=== PATIENT | male | born 1960 | race Caucasian/White ===

== ENCOUNTER 2017-01-08 06:09 | Day surgery (SDC) | payer OTHER ==
[2016-11-22 10:56] VITALS: BMI 26.7
[2017-01-07 11:47] VITALS: BMI 26.7
[~2017-01-08] VITALS: Ht 160 cm; Wt 70.6 kg
[2017-01-08] VITALS (8 sets, daily range): BP systolic 113–129; BP diastolic 68–95; PULSE 52–70; RESP 17–25; Ht 160 cm; Wt 70.6 kg
[~2017-01-08 06:09] MED LIST: CEFAZOLIN 2 GM/50 ML (PMX) 50 ML IVPB ONE
--- NOTE | 2017-01-08 07:00 | RADRPT ---
PROCEDURE: XR Chest. CLINICAL INDICATION: Preop TECHNIQUE: AP Portable chest. COMPARISON: No pertinent prior examinations were submitted for comparison. FINDINGS: The cardiomediastinal silhouette is normal. The aorta is normal. There is mild basilar scarring or atelectasis. No focal consolidation, pleural effusion or pneumothorax is seen. The osseous structu res are intact. IMPRESSION: No radiographic evidence of acute cardiopulmonary disease. RPTAT: HCNS Physician Delvin Date Time Electronically viewed and signed by Physician Delvin on 01/08/2017 07:00 CS/
[2017-01-08] MEDS ORDERED: BUPIVACAINE 0.5% (SDV) 30 ML INJ ONE (07:02)
[2017-01-08] MEDS ORDERED: LIDOCAINE 2% (MDV) 20 ML INJ ONE (07:02)
[2017-01-08] MEDS ORDERED: POLYMYXIN/BACITRACIN 1L IRRIG ONE (07:02)
--- NOTE | 2017-01-08 07:33 | HPN ---
Date/Time of Note Date/Time of Note DATE: 01/08/17 TIME: 07:33 Interval H&P Admission Note Pt. seen H&P reviewed: No system changes ALTAGRACIA NICE DPM Jan 08, 2017 07:33
[2017-01-08] MEDS ORDERED: LIDOCAINE 1% (MDV) 20 ML INJ ONE (07:40)
[2017-01-08] MEDS ORDERED: PROPOFOL 20 ML ONE (07:40)
[2017-01-08] MEDS ORDERED: MIDAZOLAM 1 MG/ML 2 ML INJ ONE (07:40)
[2017-01-08] MEDS ORDERED: ROPIVACAINE 0.2% 20 ML VIAL ONE (07:49)
[2017-01-08] MEDS ORDERED: CEFAZOLIN 1 GM INJ ONE (07:56)
[2017-01-08] MEDS ORDERED: KETOROLAC 30 MG INJ ONE (07:59)
[2017-01-08] MEDS ORDERED: ONDANSETRON 4 MG INJ ONE (07:59)
[2017-01-08] MEDS ORDERED: DEXAMETHASONE 4 MG/ML 1 ML INJ ONE (07:59)
--- NOTE | 2017-01-08 08:53 | OPPN ---
Date/Time of Note Date/Time of Note DATE: 01/08/17 TIME: 08:49 Operative Report Preoperative Diagnosis Exostosis left foot Left foot pain Postoperative Diagnosis Exostosis left foot Left foot pain Operation/Procedure Performed Exostectomy of the left foot Provider: ALTAGRACIA NICE DPM Anesthesia Type: general Estimated blood loss: minimal Transfusion Required: no Specimens Bone from the left fifth metatarsal head Grafts/Implants: none Complications: no ALTAGRACIA NICE DPM Jan 08, 2017 08:53
--- NOTE | 2017-01-08 09:14 | OPR ---
Date/Time of Note Date/Time of Note DATE: 01/08/17 TIME: 09:12 Operative Report Procedure Date: Jan 08, 2017 Preoperative Diagnosis Exostosis left foot Left foot pain Postoperative Diagnosis Exostosis left foot Left foot pain Operation Performed Exostectomy left foot Surgeon: ALTAGRACIA NICE DPM Anesthesia Type: general Estimated Blood Loss: minimal Transfusion Required: no Specimens Bone from left foot fifth metatarsal head Grafts/Implants: none Complications: no Pt Condition Post Procedure: stable Disposition: PACU Indications This is a pleasant 56-year-old male patient who has been suffering with chronic pain in the left foot fifth metatarsophalangeal joint for the past several months. Patient was evaluated and was found to have exostosis of the lateral head of the fifth metatarsal bone of the left foot. Patient has failed the following treatments: Change in shoe gear, changing activities, pain medication , orthotics. Patient seeks surgical management. Recommended procedure: Exostectomy of the left foot fifth metatarsal head. Risks and complications of this type of surgery was discussed with patient in great detail. Risks and complications discussed included, but are not limited to, postoperative infection, postoperative pain, hardware failure, failure of surgery to correct the problem, need for additional surgical procedures, deep venous thrombosis, limb loss and loss of life. Patient understands the discussion and agrees to the procedure. An informed consent was signed, obtained and placed in the chart. No guarantees or warrantees was given or implied as to the outcome of the procedure either in verbal or written form. Operative\Procedure Findings Bony exostosis left fifth metatarsal head Procedure Description Patient was seen in the preoperative area. Proposed surgery was discussed with patient in great detail. Risks and complications were discussed in great detail. Opportunity was given to patient to ask questions and all questions were answered. Patient acknowledges understanding of the discussion. An informed consent was obtained, signed and placed in the chart. The patient was then taken to the operating room and was placed on the operating table in the supine position. Patient was placed under general anesthesia. An ankle tourniquet was applied to the left ankle. All bony prominences were padded properly. A timeout was called by the circulating nurse. Next, an Esmarch bandage was utilized to exsanguinate the left foot and the pneumatic ankle tourniquet was inflated to 250 mmHg pressure. A #15 blade was used to make a 2 cm incision over the dorsal lateral aspect of the left fifth metatarsophalangeal joint. Bleeders were cauterized as needed. Dissection was deepened to the bone with layered dissection with care being taken to identify and protect vital neurovascular structures. This was done using sharp and blunt instrumentation. The joint capsule was then identified and an incision was made over the dorsal aspect exposing the metatarsophalangeal joint. The joint capsule was sharply debrided exposing the lateral aspect of the head of the fifth metatarsal bone. A moderate-sized sharp exostosis and osteophyte was present on the lateral aspect of the head of the fifth metatarsal of the left foot. A rongeur was utilized to excise the exostosis. Next, a small mallet and osteotome was used to debride further bone on the lateral side of the head of the fifth metatarsal bone. A rasp was used for smoothing out the rough edge. The wound was flushed with copious amounts of sterile normal saline. The joint capsule was then reapproximated using 3-0 Vicryl suture. There was no further palpable bony prominence on the left lateral fifth MPJ. The skin was closed using 5-0 Monocryl in subcuticular stitch pattern. Steri-Strips were applied. Postop injection of 0.5% Marcaine plain was given about 12 cc. The patient tolerated procedure and anesthesia well. The pneumatic ankle tourniquet was deflated at this time and prompt hyperemic response was noted to digits of the left foot. The patient was then transferred to recovery room with vital signs stable and vascular status intact. Patient will be discharged home after postoperative monitoring. Postoperative orders have been written. ALTAGRACIA NICE DPM Jan 08, 2017 09:14
--- NOTE | 2017-01-08 11:46 | RADRPT ---
PROCEDURE: XR Left Foot. CLINICAL INDICATION: Left foot pain. Postop. History of bony exostosis. TECHNIQUE: Three views. Frontal, lateral, and oblique. COMPARISON: None. FINDINGS: There is no fracture or dislocation. The soft tissues are normal. Articular surfaces are intact. There is no lytic or blastic lesion. There is no radiopaque foreign body. IMPRESSION: 1. Normal images of the left foot. RPTAT: QQ .Vick Maynard MD, MD Date Time Electronically viewed and signed by .Vick Maynard MD, MD on 01/08/2017 11:46 .R/
== END 2017-01-08 10:50 | disposition home or self-care (01) ==
LOC: SDS 06:09
PROVIDERS: ATTEND Podiatrist Foot & Ankle Surgery
DX: D16.32 Benign neoplasm of short bones of left lower limb (principal)
CPT/HCPCS: 28108; 71010; 73630; 88304; 88311; J0690; J1100; J1885; J2250; J2405; J2795; Z7512; Z7610

== ENCOUNTER 2017-06-13 12:34 | Day surgery (SDC) | END 2017-06-13 14:35 | disposition home or self-care (01) ==